=== PATIENT | female | born 1960 | race Caucasian/White ===

== ENCOUNTER → 2019-02-25 | Outpatient (CLI) | payer OTHER ==
--- NOTE | 2019-02-27 09:42 | MM ---
Reason for exam: screening (asymptomatic). History: Patient is postmenopausal. Took hormonal contraceptives for 2 years. Physical Findings: A clinical breast exam by your physician is recommended on an annual basis and results should be correlated with mammographic findings. MG Screening Mammo w CAD Bilateral CC and MLO view(s) were taken. There are scattered fibroglandular densities. No significant changes when compared with prior studies. ASSESSMENT: Benign, BI-RAD 2 RECOMMENDATION: Routine screening mammogram of both breasts in 1 year.
== END | disposition home or self-care (01) ==
LOC: RADMAMWWP 08:18
PROVIDERS: ATTEND Family Medicine
DX: Z12.31 Encounter for screening mammogram for malignant neoplasm of breast (principal)
CPT/HCPCS: 77067

== ENCOUNTER → 2019-03-02 | Outpatient (CLI) | payer OTHER ==
--- NOTE | 2019-03-02 09:33 | XR ---
EXAMINATION TYPE: XR hand complete RT DATE OF EXAM: 03/02/2019 CLINICAL HISTORY: Right hand pain after twisting injury TECHNIQUE: Frontal, lateral and oblique images of the right hand are obtained. COMPARISON: None. FINDINGS: There is no acute fracture/dislocation evident in the right hand. The joint spaces in the right hand appear aligned with mild hypertrophic osseous change of the first carpal metacarpal joint. Minimal degenerative changes are also seen of the distal interphalangeal joints. Cortical cyst of th e distal third middle phalanx. Incidental note of slight negative ulnar variance. The overlying soft tissue appears unremarkable. Osseous proliferation IMPRESSION: There is no acute fracture or dislocation in the right hand.
== END | disposition home or self-care (01) ==
LOC: RADXRMAIN 08:48
PROVIDERS: ATTEND Physician Assistant
DX: M79.641 Pain in right hand (principal)

== ENCOUNTER → 2019-06-27 | Day surgery (SDC) | payer OTHER ==
[2019-06-23 11:06] VITALS: BMI 37.8
[~2019-06-27] MED LIST: BUPIVACAINE (PF) 0.5% 30 ML VIAL SQ ONE; DEXAMETHASONE SOD PHOSPHATE 10 MG/ML 1 ML VIAL IV ONE; HYDROcodone/APAP 5-325MG 1 EACH TAB PO ONE; HYDROmorphone 0.5 MG/0.5 ML SYRINGE IVP PRN; LACTATED RINGERS 1,000 ML IV SCH; LIDOCAINE 1% 20 ML VIAL (10MG/ML) FOR IV START INTRADERMA PRN; LIDOCAINE 1% INJ 10MG/ML (20 ML MDV) ONE; LIDOCAINE 2% INJ 20 MG/ML SQ ONE; MIDAZOLAM 2 MG/2 ML VIAL ONE; ONDANSETRON 4 MG/2 ML VIAL IVP ONE; PROPOFOL 10 MG/ML 20 ML VIAL IV ONE; Pre Op ABX Message 1 EACH MISC MISCELLANE ONE; SCOPOLAMINE 1.5MG/72HR PATCH TRANSDERM ONE; fentaNYL (PF) 50 MCG/ML 2 ML AMP ONE
[2019-06-27 11:59] VITALS: TEMP 97.2
[2019-06-27 12:02] LABS: Glucose,Whole Blood 122 mg/dL (75-99)
[2019-06-27 13:11] VITALS: RESP 17
[2019-06-27 13:43] VITALS: BP 139/72; PULSE 62
--- NOTE | 2019-06-28 05:32 | OP ---
OPERATIVE REPORT DATE OF SERVICE: 06/27/2019 PREOPERATIVE DIAGNOSES: 1. Right carpal tunnel syndrome. 2. De Quervain tendinitis, right wrist. FINAL DIAGNOSES: 1. Right carpal tunnel syndrome. 2. De Quervain tendinitis, right wrist. PROCEDURE: 1. Right carpal tunnel release. 2. De Quervain release, right wrist. DESCRIPTION OF PROCEDURE: Right Carpal Tunnel Release: The patient was taken to the operative suite where a sedation was administered by the department of anesthesia. I then performed a local injection along the line of the incision with a combination of Marcaine and Xylocaine both without epinephrine. The hand was then prepped and draped in the usual manner. The arm was elevated, exsanguinated and the cuff was inflated to 250 mm of mercury. A longitudinal incision was made along the ring finger ray distal to the wrist crease. Dissection was taken through the skin and subcutaneous tissue, initially sharp through the skin and then blunt through the subcutaneous tissue to ensure protection of any potential terminal transverse branches of the palmar cutaneous nerve. The palmar fascia was then incised under direct vision longitudinally exposing the transverse carpal ligament. The transverse carpal ligament also was incised under direct vision. The dissection was then continued proximally beneath the skin under direct vision to release the distal forearm fascia. The median nerve was then reflected free of tenosynovium to ensure no adhesions. The tourniquet was then released. The wound was then irrigated and the skin was closed with a running 5-0 nylon suture. A soft bulky dressing was applied including a volar plaster splint holding the wrist in a neutral slightly extended position. De Quervain Release: A regional [place] block anesthetic was performed by the department of anesthesia with good result. The arm was then prepped and draped in the usual manner. A transverse incision was made over the radial styloid. Dissection was taken through the skin only in a sharp manner and then blunt dissection was used to go through the subcutaneous tissue to the extensor retinaculum. In this manner care was taken to avoid any injury to the dorsal branch of the radial nerve. The extensor retinaculum was identified and visualized with both its proximal and distal aspects. Beginning distally the extensor tendons were identified and followed into the tunnel in a retrograde manner. The tunnel was opened along its dorsal margins. In this way a volar lip was preserved to prevent volar subluxation of the tendons over the radial styloid postoperatively. The multiple cysts of the abductor and the extensor pollicis brevis were released and care was taken to make sure that all tendons were free at the completion. A limited tenosynovectomy was performed. The tendons were retracted from the wound to insure no adhesions. The wound was irrigated. The tendons were left within the bed of the first dorsal extensor compartment and the volar flap which had been preserved as discussed above was laid gently over the top of the tendons. The wound was then closed with 6-0 Nylon suture. Marcaine was injected followed by application of a soft bulky dressing and volar plaster splint including the thumb with the wrist in a slight extension. The patient was then taken to the recovery room in satisfactory condition. DIANA / EUSEBIO: [id number] /
== END ==
LOC: OR 11:13
PROVIDERS: ATTEND Orthopaedic Surgery Hand Surgery
DX: G56.01 Carpal tunnel syndrome, right upper limb (principal); M65.4 Radial styloid tenosynovitis [de Quervain]; I10 Essential (primary) hypertension; E11.9 Type 2 diabetes mellitus without complications; K21.9 Gastro-esophageal reflux disease without esophagitis; F32.9 Major depressive disorder, single episode, unspecified; R26.81 Unsteadiness on feet; R45.0 Nervousness; R00.2 Palpitations; E66.01 Morbid (severe) obesity due to excess calories; Z79.899 Other long term (current) drug therapy; Z79.84 Long term (current) use of oral hypoglycemic drugs; Z79.82 Long term (current) use of aspirin; Z97.3 Presence of spectacles and contact lenses; Z68.37 Body mass index [BMI] 37.0-37.9, adult; Z90.710 Acquired absence of both cervix and uterus; Z98.890 Other specified postprocedural states; Z82.49 Family history of ischemic heart disease and other diseases of the circulatory system; Z86.79 Personal history of other diseases of the circulatory system
CPT/HCPCS: 64721; 25000; J2001 ×2; J2250; J1100; J2405; J3010; J2704

== ENCOUNTER 2020-01-30 19:06 | Emergency (ER) | payer MEDICARE, OTHER ==
[2020-01-30 19:22] VITALS: TEMP 98
--- NOTE | 2020-01-30 19:24 | ED ---
Lower Extremity Injury HPI - General Chief Complaint: Extremity Injury, Lower Stated Complaint: lt knee pain Time Seen by Provider: 01/30/20 19:23 Source: patient Mode of arrival: ambulatory - History of Present Illness Initial Comments: Patient is 59-year-old female presenting to the emergency department with a chief complaint of left knee pain. Patient states earlier today she was attempting to get into her truck. Patient states she got her left leg off of the ground and felt sudden pop and an onset of pain along the lateral aspect the left knee. Patient states the knee "could've possibly twisted". States she is not completely aware. States the pain is exacerbated with knee flexion above 90. Patient states she is able to ambulate with some discomfort. Patient denies any sensation of her knee giving out. Denies any swelling, ecchymosis. States she had previous surgery on the left knee which she was 10 years old for a patella fracture. States the pain is minimal at rest but alleviated with knee flexion. - Related Data Home Medications Medication Instructions Recorded Confirmed Aspirin [Adult Low Dose Aspirin EC] 81 mg PO DAILY 06/23/19 06/23/19 Bisoprolol [Zebeta] 5 mg PO DAILY 06/23/19 06/23/19 Calcium With Vitamin D 1 tab PO DAILY 06/23/19 Cyanocobalamin [Vitamin B-12] 500 mcg PO DAILY 06/23/19 06/23/19 DULoxetine HCL [Cymbalta] 60 mg PO HS 06/23/19 06/23/19 Lisinopril-Hctz 20-12.5 mg 1 tab PO BID 06/23/19 06/23/19 [Zestoretic 20-12.5] Loratadine 10 mg PO DAILY 06/23/19 06/23/19 Magnesium 500 mg PO DAILY 06/23/19 06/23/19 Naproxen Sodium [Aleve] 220 mg PO BID PRN 06/23/19 06/23/19 Oxybutynin Chloride [Ditropan] 5 mg PO BID 06/23/19 06/23/19 Pantoprazole Sodium [Protonix] 20 mg PO DAILY 06/23/19 06/23/19 Pregabalin [Lyrica] 100 mg PO TID 06/23/19 06/23/19 cloNIDine HCL [Catapres] 0.1 mg PO BID 06/23/19 06/23/19 metFORMIN HCL [Glucophage] 1,000 mg PO AC-LUNCH 06/23/19 06/23/19 tiZANidine HCL [Zanaflex] 4 mg PO TID PRN 06/23/19 06/23/19 Allergies Allergy/AdvReac Type Severity Reaction Status Date / Time No Known Allergies Allergy Verified 01/30/20 19:22 Review of Systems ROS Statement: Those systems with pertinent positive or pertinent negative responses have been documented in the HPI. ROS Other: All systems not noted in ROS Statement are negative. Past Medical History Past Medical History: Atrial Fibrillation, Diabetes Mellitus, GERD/Reflux, Hypertension Additional Past Medical History / Comment(s): DDD WITH HERNIATED DISC AND BACK PAIN, URINE LEAKAGE. History of Any Multi-Drug Resistant Organisms: None Reported Past Surgical History: Hysterectomy, Orthopedic Surgery Additional Past Surgical History / Comment(s): BACK INJECTIONS, LEFT KNEE ARTHROSCOPY, LEFT FOOT MASS REMOVED Past Anesthesia/Blood Transfusion Reactions: No Reported Reaction Additional Past Anesthesia/Blood Transfusion Reaction / Comment(s): SON- AGITATED, "CUSSES NURSES" Past Psychological History: Depression Smoking Status: Never smoker Past Alcohol Use History: Occasional Past Drug Use History: None Reported - Past Family History Mother Family Medical History: Cancer General Exam Limitations: no limitations General appearance: alert, in no apparent distress, obese Head exam: Present: atraumatic, normocephalic, normal inspection Eye exam: Present: normal appearance, PERRL, EOMI Pupils: Present: normal accommodation ENT exam: Present: normal exam, normal oropharynx, mucous membranes moist, TM's normal bilaterally, normal external ear exam Neck exam: Present: normal inspection, full ROM. Absent: tenderness Respiratory exam: Present: normal lung sounds bilaterally. Absent: respiratory distress, wheezes, rales Cardiovascular Exam: Present: regular rate, normal rhythm, normal heart sounds Extremities exam: Present: normal inspection (No signs of trauma or any bony deformities noted on the left knee.), tenderness (Tenderness along the LCL of the left knee.), normal capillary refill, other (+2 dorsalis pedis and posterior tibialis bilaterally. Negative Anterior drawer. Negative America). Absent: full ROM (Limited range of motion in the left knee above 90.), pedal edema, joint swelling, calf tenderness Back exam: Present: normal inspection, full ROM. Absent: tenderness Neurological exam: Present: alert, oriented X3 Psychiatric exam: Present: normal affect, normal mood Skin exam: Present: warm, dry, intact, normal color Course Vital Signs 01/30/20 01/30/20 19:17 20:12 Temperature 98 F Pulse Rate 60 55 L Respiratory 18 16 Rate Blood Pressure 178/100 174/98 O2 Sat by Pulse 99 99 Oximetry Medical Decision Making - Medical Decision Making Patient is a 59-year-old female presenting to emergency Department with a chief complaint of left knee pain. On physical examination, patient is neurovascularly intact in the left lower stomach. Negative anterior drawer and America. X-ray shows some spurring but otherwise unremarkable. Patient was given Tylenol for pain. Patient was advised to follow with crime specialist. Strict return parameters were thoroughly discussed the patient was understanding and agreeable. Case discussed with physician. Disposition Clinical Impression: Left knee pain, Left knee sprain Disposition: HOME SELF-CARE Condition: Stable Instructions (If sedation given, give patient instructions): Knee Sprain (ED) Additional Instructions: Follow-up with crime specialist. Take Tylenol for pain. Apply ice compress and keep the leg elevated. Return to emergency department if symptoms worsen. Is patient prescribed a controlled substance at d/c from ED?: No Referrals: Sumit Smith DO [Primary Care Provider] - 1-2 days Khadar Ford MD [STAFF PHYSICIAN] - 1-2 days Time of Disposition: 19:54
[2020-01-30] MEDS ORDERED: ACETAMINOPHEN TAB 500 MG TAB PO STA (19:33)
--- NOTE | 2020-01-30 19:50 | XR ---
EXAMINATION TYPE: XR knee complete LT DATE OF EXAM: 01/30/2020 COMPARISON: NONE HISTORY: Knee pain TECHNIQUE: 3 views FINDINGS: I see no fracture nor dislocation. There is mild spurring on the superior patella. The join t spaces are fairly normal. There is no sign of joint effusion. IMPRESSION: Minimal spurring. No fracture seen.
[2020-01-30 20:13] VITALS: BP 174/98; PULSE 55; RESP 16
== END 2020-01-30 20:18 | disposition home or self-care (01) ==
LOC: EC 19:06
DX: S83.92XA Sprain of unspecified site of left knee, initial encounter (principal); I10 Essential (primary) hypertension; E11.9 Type 2 diabetes mellitus without complications; M54.9 Dorsalgia, unspecified; F32.9 Major depressive disorder, single episode, unspecified; K21.9 Gastro-esophageal reflux disease without esophagitis; I48.91 Unspecified atrial fibrillation; Z79.82 Long term (current) use of aspirin; Z79.899 Other long term (current) drug therapy; Z79.84 Long term (current) use of oral hypoglycemic drugs; Z98.890 Other specified postprocedural states; X50.1XXA Overexertion from prolonged static or awkward postures, initial encounter
CPT/HCPCS: 99283

== ENCOUNTER → 2020-03-01 | Outpatient (CLI) | payer MEDICARE, OTHER ==
--- NOTE | 2020-03-01 14:16 | MR ---
EXAMINATION TYPE: MR knee LT wo con DATE OF EXAM: 03/01/2020 COMPARISON: None HISTORY: Left knee pain CONTRAST: None Technique: Multiplanar, multiecho imaging on a 3.0 Emely magnet is performed through the knee. FINDINGS: There is a large joint effusion. Linear signals within the joint fluid. A plica may be pres ent. There is increased horizontal signal within the posterior horn medial meniscus compatible with a type I internal tear. No communication with an articular surface is evident. The anterior horn medial men iscus appears normal. Anterior and posterior cruciate ligaments are intact. Anterior and posterior ho rns lateral meniscus are intact. Medial and lateral collateral ligaments are intact. There is some mild joint space narrowing of the medial compartment with thinning of the articular car tilage. Milder lateral compartment articular cartilage thinning is present. Patellofemoral articular cartilage appears intact. Osseous signal is normal. No popliteal cysts evident. There is some mild rush bcutaneous edema present anteriorly. IMPRESSIONS: 1. Large joint effusion. Consider the possibility of a plica present within the joint fluid. 2. Osteoarthritic degenerative type changes. 3. Type I tear posterior horn medial meniscus 2.
== END | disposition home or self-care (01) ==
LOC: RADMRIMAIN 11:08
PROVIDERS: ATTEND Orthopaedic Surgery
DX: S83.242A Other tear of medial meniscus, current injury, left knee, initial encounter (principal); M17.12 Unilateral primary osteoarthritis, left knee

== ENCOUNTER → 2020-03-18 | Outpatient (CLI) | payer MEDICARE, OTHER ==
[2020-03-18 14:33] LABS: Basophils # (A) 0.1 k/uL (0-0.2); Basophils % (A) 1 %; Eosinophils # (A) 0.3 k/uL (0-0.7); Eosinophils % (A) 4 %; HCT 38.1 % (34.0-46.0); HGB 11.9 gm/dL (11.4-16.0); Hypochromasia Slight; Lymphocytes # (A) 2.4 k/uL (1.0-4.8); Lymphocytes % (A) 26 %; MCHC 31.3 g/dL (31.0-37.0); MCV 86.2 fL (80.0-100.0); Mean Platelet Volume 8.5; Monocytes # (A) 0.5 k/uL (0-1.0); Monocytes % (A) 6 %; Neutrophils # (A) 5.5 k/uL (1.3-7.7); Neutrophils % (A) 62 %; Platelet Count 171 k/uL (150-450); RBC 4.41 m/uL (3.80-5.40); RDW 15.1 % (11.5-15.5); WBC 8.9 k/uL (3.8-10.6)
[2020-03-18 14:38] LABS: Potassium 4.8 mmol/L (3.5-5.1)
== END | disposition home or self-care (01) ==
LOC: LABPAT 12:24
PROVIDERS: ATTEND Orthopaedic Surgery
DX: M23.92 Unspecified internal derangement of left knee (principal)
CPT/HCPCS: 36415; 80051; 85025; 93005

== ENCOUNTER 2020-04-01 12:46 | Day surgery (SDC) | payer MEDICARE, OTHER ==
[2020-03-29 12:52] VITALS: BMI 36.8
--- NOTE | 2020-03-31 16:10 | HP ---
HISTORY AND PHYSICAL REASON FOR ADMISSION: Surgery scheduled for 04/01/2020 Monica Woodward is a 59-year-old patient seen with progressive left knee pain. We discussed options for treatment. She elected to proceed with left knee arthroscopy. Consent regarding the procedure was obtained. PAST MEDICAL HISTORY: [id number] diabetes, hypertension. PAST SURGICAL HISTORY: section, hysterectomy, left knee arthroscopy. MEDICATIONS: Bisoprolol, lisinopril, metformin, Naprosyn. ALLERGIES: None. SOCIAL HISTORY: She denies tobacco use. PHYSICAL EXAMINATION: Evaluation of the left knee: Range of motion 0-110 degrees. Mild effusion. Tenderness medial joint line. Tenderness lateral joint line. Positive medial America's. Positive lateral America's. Ligaments are stable. Hip rotation without pain. Distal neurovascular exam is intact. RADIOGRAPHS: Left knee radiographs revealed mild to moderate osteoarthritic changes. Left knee MRI revealed medial meniscal tear and intra-articular effusion. IMPRESSION: 1. Internal derangement, left knee with medial meniscal tear. 2. Left knee osteoarthritis. 3. Hypertension. 4. Xnt-ahavwsb-oiynairmz diabetes. PLAN: Left knee arthroscopy with partial meniscectomy, partial synovectomy and debridement. Surgeries scheduled for 04/01/2020. MMODL / IJN: [id number] /
[~2020-04-01 12:46] MED LIST changes: -BUPIVACAINE (PF) 0.5% 30 ML VIAL SQ ONE; -DEXAMETHASONE SOD PHOSPHATE 10 MG/ML 1 ML VIAL IV ONE; +DEXAMETHASONE SOD PHOSPHATE 4 MG/ML 1 ML VIAL IV ONE; -HYDROcodone/APAP 5-325MG 1 EACH TAB PO ONE; -HYDROmorphone 0.5 MG/0.5 ML SYRINGE IVP PRN; +LIDOCAINE 1% (10MG/ML) FOR IV START INTRADERMA PRN; -LIDOCAINE 1% 20 ML VIAL (10MG/ML) FOR IV START INTRADERMA PRN; -LIDOCAINE 1% INJ 10MG/ML (20 ML MDV) ONE; -LIDOCAINE 2% INJ 20 MG/ML SQ ONE; +MIDAZOLAM 2 MG/2 ML VIAL IV PRN; -MIDAZOLAM 2 MG/2 ML VIAL ONE; -PROPOFOL 10 MG/ML 20 ML VIAL IV ONE; -Pre Op ABX Message 1 EACH MISC MISCELLANE ONE; -SCOPOLAMINE 1.5MG/72HR PATCH TRANSDERM ONE; -fentaNYL (PF) 50 MCG/ML 2 ML AMP ONE
[2020-04-01 13:40] LABS: Glucose,Whole Blood 98 mg/dL (75-99)
[2020-04-01 13:45] VITALS: TEMP 96.8
[2020-04-01] MEDS ORDERED: PROPOFOL 10 MG/ML 20 ML VIAL IV ONE (14:43)
[2020-04-01] MEDS ORDERED: LIDOCAINE 1% INJ 10MG/ML (20 ML MDV) ONE (14:43)
[2020-04-01] MEDS ORDERED: MIDAZOLAM 2 MG/2 ML VIAL ONE (14:43)
[2020-04-01] MEDS ORDERED: fentaNYL (PF) 50 MCG/ML 2 ML AMP ONE (14:43)
[2020-04-01] MEDS ORDERED: METOPROLOL TARTRATE 5 MG/5 ML VIAL IVP ONE (14:43)
[2020-04-01] MEDS ORDERED: SUCCINYLCHOLINE CHLORIDE 100 MG/5 ML SYR IV ONE (14:43)
[2020-04-01] MEDS ORDERED: KETOROLAC 15 MG/ML 1 ML VIAL ONE (14:43)
[2020-04-01] MEDS ORDERED: BUPIVACAINE (PF) 0.25% 30 ML VIAL INTRAARTIC ONE (15:09)
--- NOTE | 2020-04-01 15:35 | P.OP ---
Date of Procedure: 04/01/20 Preoperative Diagnosis: Internal derangement left knee Postoperative Diagnosis: 1. Tear medial meniscus left knee 2. Grade 3 chondromalacia medial femoral condyle left knee 3. Reactive synovitis medial, lateral and suprapatellar compartments left knee Procedure(s) Performed: 1. Arthroscopic partial medial meniscectomy left knee 2. Arthroscopic chondroplasty medial femoral condyle left knee 3. Arthroscopic partial synovectomy medial, lateral and suprapatellar compartments left knee Anesthesia: MATTHIASA, local Surgeon: Sotero Buitrago Estimated Blood Loss (ml): 10 Pathology: none sent Condition: stable Disposition: PACU Indications for Procedure: 59-year-old patient seen with progressive left knee pain. After treatment options were discussed, she elected to proceed with arthroscopy. Operative Findings: See description of procedure Description of Procedure: Patient was taken to the operative suite. Patient underwent a general anesthetic by the department of anesthesia. Patient was given preoperative antibiotics. The left lower extremity was placed in a well-padded arthroscopic leg frank. The left leg was prepped and draped in the normal sterile orthopedic fashion. A lateral parapatellar and suprapatellar incision was made. Trochars were inserted. Arthroscopy was initiated. Suprapatellar pouch revealed diffuse thick reactive synovitis. The patellofemoral joint appeared to articulate congruently. There was grade 1/2 chondromalacia with no osteochondral tears present. The scope was guided into the medial gutter. No loose bodies or plica were identified. The scope was then guided into the medial compartment. A medial parapatellar incision was made. Trocar inserted followed by probe. There was a radial tear posterior horn medial meniscus. There were grade 3 chondromalacia changes of the medial femoral condyle with some diffuse osteochondral tears present. There was thick reactive synovitis anteriorly. I performed a partial medial meniscectomy. I performed a chondroplasty of the medial femoral condyle. I performed a partial synovectomy decompressing reactive synovitis. The residual meniscus was stable. The residual osteochondral surface was stable. There was good decompression of the synovitis. Scope and probe were then guided into the intercondylar notch. Cruciates were identified, probed and found to be stable. The scope and probe were then guided into lateral compartment. Lateral meniscus was probed and found to be stable. There was mild chondromalacia lateral compartment. There was thick reactive some-itis anteriorly. I introduced a motorized shaver and performed a partial synovectomy decompressing reactive synovitis. The shaver was removed. There was good decompression of the synovitis. The scope was in guided back into the suprapatellar compartment. I introduced a motorized shaver into the super patellar compartment. I debrided some piecemeal fragments of meniscus I encountered. I performed a partial synovectomy. The shaver was re moved. There was good decompression of the synovitis. I took one more look around the entire knee, no residual debris. Instruments were now removed from the joint. The joint was infiltrated with .25% Marcaine. Steri-Strips were applied to the portal sites. Sterile dressings were applied. The patient was placed into a DANIELA hose. No tourniquet was utilized. The patient was awakened, transferred to a bed and taken to recovery stable satisfactory condition.
[2020-04-01 15:51] LABS: Glucose,Whole Blood 108 mg/dL (75-99)
[2020-04-01] MEDS: HYDROmorphone 0.5 MG/0.5 ML SYRINGE IVP PRN ×3 (16:01→16:21)
[2020-04-01 16:41] VITALS: RESP 16
[2020-04-01] MEDS ORDERED: HYDROcodone/APAP 5-325MG 1 EACH TAB ONE (16:43)
[2020-04-01 16:55] VITALS: BP 122/88; PULSE 50
== END 2020-04-01 17:20 | disposition home or self-care (01) ==
LOC: OR 12:46
PROVIDERS: ATTEND Orthopaedic Surgery
DX: M23.222 Derangement of posterior horn of medial meniscus due to old tear or injury, left knee (principal); M17.12 Unilateral primary osteoarthritis, left knee; M94.262 Chondromalacia, left knee; M65.862 Other synovitis and tenosynovitis, left lower leg; I10 Essential (primary) hypertension; I48.91 Unspecified atrial fibrillation; J44.9 Chronic obstructive pulmonary disease, unspecified; E11.9 Type 2 diabetes mellitus without complications; K21.9 Gastro-esophageal reflux disease without esophagitis; Z79.82 Long term (current) use of aspirin; Z79.84 Long term (current) use of oral hypoglycemic drugs; Z79.899 Other long term (current) drug therapy; Z90.710 Acquired absence of both cervix and uterus; Z98.891 History of uterine scar from previous surgery; Z98.890 Other specified postprocedural states
CPT/HCPCS: 29881; J2250; J1100; J0690; J2405; J2001; J3010; J1885; J0330; J2704; J1170

== ENCOUNTER → 2020-05-06 | Outpatient (CLI) | payer MEDICARE, OTHER ==
--- NOTE | 2020-05-06 14:40 | US ---
EXAMINATION TYPE: US kidneys/renal and bladder DATE OF EXAM: 05/06/2020 COMPARISON: NONE CLINICAL HISTORY: N18.31 CKD STAGE III. CKD stage 3 EXAM MEASUREMENTS: Right Kidney: 10.4 x 4.5 x 4.0 cm Left Kidney: 10.7 x 4.2 x 4.4 cm Right Kidney: no hydronephrosis or masses seen Left Kidney: no hydronephrosis or masses seen Bladder: wnl Bilateral Jets seen: yes There is no evidence for hydronephrosis at this point in time. No nephrolithiasis is seen. No lien s are identified. The urinary bladder is anechoic. Bilateral ureteral jets are seen. IMPRESSION: No distinct abnormality seen.
[2020-05-06 14:51] LABS: Appearance,Urine Clear (Clear); Bilirubin,Urine Negative (Negative); Blood,Urine Negative (Negative); Color,Urine Light Yellow; Glucose,Urine (UA) Negative (Negative); Ketones,Urine Negative (Negative); Leukocyte Esterase,Urine Negative (Negative); Nitrite,Urine Negative (Negative); Protein,Urine Negative (Negative); Specific Gravity,Urine 1.003 (1.001-1.035); Urobilinogen,Urine <2.0 mg/dL (<2.0)
[2020-05-06 14:53] LABS: Basophils # (A) 0.1 k/uL (0-0.2); Basophils % (A) 1 %; Eosinophils # (A) 0.2 k/uL (0-0.7); Eosinophils % (A) 2 %; HCT 40.3 % (34.0-46.0); Lymphocytes # (A) 1.9 k/uL (1.0-4.8); Lymphocytes % (A) 20 %; MCH 27.6 pg (25.0-35.0); MCHC 32.4 g/dL (31.0-37.0); MCV 85.2 fL (80.0-100.0); Mean Platelet Volume 9.2; Monocytes # (A) 0.5 k/uL (0-1.0); Monocytes % (A) 6 %; Neutrophils # (A) 6.6 k/uL (1.3-7.7); Neutrophils % (A) 71 %; Platelet Count 208 k/uL (150-450); RBC 4.73 m/uL (3.80-5.40); RDW 14.7 % (11.5-15.5); WBC 9.4 k/uL (3.8-10.6)
[2020-05-06 15:00] LABS: Calcium 9.6 mg/dL (8.4-10.2); Magnesium 1.6 mg/dL (1.6-2.3); Phosphorus 3.5 mg/dL (2.5-4.5); Potassium 4.2 mmol/L (3.5-5.1); Uric Acid 6.7 mg/dL (3.7-7.4)
[2020-05-06 15:03] LABS: Creatinine,Urine Random 36.9 mg/dL; Protein/Creatinine Ratio,Urine 0.352
[2020-05-07 00:25] LABS: % Iron Saturation 8.38 (12.00-45.00)
== END | disposition home or self-care (01) ==
LOC: RADUSWWP 13:07
PROVIDERS: ATTEND Internal Medicine Nephrology
DX: N18.31 Chronic kidney disease, stage 3a (principal); N17.9 Acute kidney failure, unspecified; E55.9 Vitamin D deficiency, unspecified; N25.81 Secondary hyperparathyroidism of renal origin; M10.9 Gout, unspecified; N39.0 Urinary tract infection, site not specified; D64.9 Anemia, unspecified; R80.9 Proteinuria, unspecified
CPT/HCPCS: 76770; 80048; 81003; 82040; 82306; 82570; 82728; 83540; 83550; 83735; 83970; 84100; 84156; 84550; 85025

== ENCOUNTER 2020-09-25 16:48 | Emergency (ER) | payer MEDICARE, OTHER ==
[2020-09-25 16:52] VITALS: BP 140/82; PULSE 72; RESP 18; TEMP 99.3
[2020-09-25] MEDS ORDERED: KETOROLAC 15 MG/ML 1 ML VIAL IM STA (17:00)
--- NOTE | 2020-09-25 17:04 | ED ---
Lower Extremity Injury HPI - General Chief Complaint: Extremity Injury, Lower Stated Complaint: fall/knee injury Time Seen by Provider: 09/25/20 16:53 Source: patient, RN notes reviewed Mode of arrival: ambulatory Limitations: no limitations - History of Present Illness Initial Comments: 60-year-old female presenting emergency room complaining of right knee pain after falling on it. She notes that she was walking when she fell and landed dry in her knee. She notes medial sided pain. She did note that she can walk on it with some mild discomfort. She denied any previous knee injury or concerns in the past for the right knee. She was in no apparent distress or pain while sitting up in bed during exam and interview. She denied any weakness numbness tingling decreased range of motion or strength. - Related Data Home Medications Medication Instructions Recorded Confirmed Aspirin [Adult Low Dose Aspirin EC] 81 mg PO DAILY 06/23/19 04/01/20 Bisoprolol [Zebeta] 5 mg PO DAILY 06/23/19 04/01/20 Calcium With Vitamin D 1 tab PO BID 06/23/19 04/01/20 Cyanocobalamin [Vitamin B-12] 1,000 mcg PO DAILY 06/23/19 04/01/20 DULoxetine HCL [Cymbalta] 60 mg PO HS 06/23/19 04/01/20 Lisinopril-Hctz 20-12.5 mg 1 tab PO BID 06/23/19 04/01/20 [Zestoretic 20-12.5] Loratadine 10 mg PO DAILY 06/23/19 04/01/20 Magnesium 500 mg PO DAILY 06/23/19 04/01/20 Naproxen Sodium [Aleve] 220 mg PO BID PRN 06/23/19 04/01/20 Oxybutynin Chloride [Ditropan] 5 mg PO BID 06/23/19 04/01/20 Pantoprazole Sodium [Protonix] 20 mg PO DAILY 06/23/19 04/01/20 Pregabalin [Lyrica] 100 mg PO TID 06/23/19 04/01/20 cloNIDine HCL [Catapres] 0.1 mg PO BID 06/23/19 04/01/20 metFORMIN HCL [Glucophage] 500 mg PO BID 06/23/19 04/01/20 tiZANidine HCL [Zanaflex] 4 mg PO TID PRN 06/23/19 04/01/20 Albuterol Nebulized [Ventolin 2.5 mg INHALATION QID PRN 03/29/20 04/01/20 Nebulized] traMADol HCl [Ultram] 50 mg PO DIRECTED PRN 03/29/20 04/01/20 Previous Rx's Medication Instructions Recorded Hydrocodone/Acetaminophen [Forest 1 each PO Q6HR PRN #21 tab 04/01/20 5-325] Allergies Allergy/AdvReac Type Severity Reaction Status Date / Time No Known Allergies Allergy Verified 09/25/20 16:52 Review of Systems ROS Statement: Those systems with pertinent positive or pertinent negative responses have been documented in the HPI. ROS Other: All systems not noted in ROS Statement are negative. Past Medical History Past Medical History: Atrial Fibrillation, Diabetes Mellitus, GERD/Reflux, Hypertension, Musculoskeletal Disorder, Pneumonia Additional Past Medical History / Comment(s): Occ palpitations. DDD w/ herniated disc, back pain. Abn kidney function testing, to see [place]. Bladder leakage. Had a pop in Lt knee w/ pain since, edema in knee. lt knee surgery History of Any Multi-Drug Resistant Organisms: None Reported Past Surgical History: Hysterectomy, Orthopedic Surgery Additional Past Surgical History / Comment(s): BACK INJECTIONS, LEFT KNEE ARTHROSCOPY, LEFT FOOT MASS REMOVED. CTR bilat. Past Anesthesia/Blood Transfusion Reactions: No Reported Reaction, Family History of Problems w/ Anesthesia Additional Past Anesthesia/Blood Transfusion Reaction / Comment(s): SON - AGITATED, "CUSSES out NURSES" Past Psychological History: Depression Smoking Status: Never smoker Past Alcohol Use History: None Reported Past Drug Use History: None Reported - Past Family History Mother Family Medical History: Cancer, Deep Vein Thrombosis (DVT) Additional Family Medical History / Comment(s): uterine cancer General Exam Limitations: no limitations General appearance: alert, in no apparent distress Head exam: Present: atraumatic, normocephalic, normal inspection Eye exam: Present: normal appearance, PERRL, EOMI. Absent: scleral icterus, conjunctival injection, periorbital swelling Neck exam: Present: normal inspection Respiratory exam: Present: normal lung sounds bilaterally. Absent: respiratory distress, wheezes, rales, rhonchi, stridor Cardiovascular Exam: Present: regular rate, normal rhythm, normal heart sounds. Absent: systolic murmur, diastolic murmur, rubs, gallop, clicks Extremities exam: Present: normal inspection (Positive America's test medial side of the right knee), full ROM, normal capillary refill. Absent: tenderness, pedal edema, joint swelling, calf tenderness Neurological exam: Present: alert, oriented X3, CN II-XII intact Psychiatric exam: Present: normal affect, normal mood Skin exam: Present: warm, dry, intact, normal color. Absent: rash Course Vital Signs 09/25/20 16:49 Temperature 99.3 F Pulse Rate 72 Respiratory 18 Rate Blood Pressure 140/82 O2 Sat by Pulse 96 Oximetry Medical Decision Making - Medical Decision Making 89-year-old female complaining of right knee pain after falling earlier today. X-ray of the right knee, 15 mg of Toradol ordered. Case discussed with Dr. Orellana, patient can discharge home. - Radiology Data Radiology results: report reviewed, image reviewed Right knee x-ray: There is soft tissue swelling. No fracture. Disposition Clinical Impression: Right knee pain Disposition: HOME SELF-CARE Condition: Stable Instructions (If sedation given, give patient instructions): Knee Pain (ED) Additional Instructions: Please return to the Emergency Department if symptoms worsen or any other concerns. Follow-up with primary care in 3-5 days. Follow-up with orthopedics if pain continues. Take at home pain medication such as Tylenol Motrin for pain control. Use as tolerated. Is patient prescribed a controlled substance at d/c from ED?: No Referrals: Sumit Smith DO [Primary Care Provider] - 1-2 days Lee Steele DO [Doctor of Osteopathic Medicine] - 1-2 days Time of Disposition: 17:57
--- NOTE | 2020-09-25 17:55 | XR ---
EXAMINATION TYPE: XR knee 4V RT DATE OF EXAM: 09/25/2020 COMPARISON: NONE HISTORY: Knee pain TECHNIQUE: 4 views FINDINGS: I see no fracture nor dislocation. Joint spaces are normal. There is no sign of joint effus ion. There is subcutaneous edema around the knee. IMPRESSION: There is some soft tissue swelling. No fracture.
== END 2020-09-25 18:16 | disposition home or self-care (01) ==
LOC: EC 16:48
DX: M25.561 Pain in right knee (principal); M79.89 Other specified soft tissue disorders; E11.9 Type 2 diabetes mellitus without complications; I10 Essential (primary) hypertension; K21.9 Gastro-esophageal reflux disease without esophagitis; I48.91 Unspecified atrial fibrillation; F32.9 Major depressive disorder, single episode, unspecified; Z79.84 Long term (current) use of oral hypoglycemic drugs; Z79.82 Long term (current) use of aspirin; W18.30XA Fall on same level, unspecified, initial encounter; Y93.01 Activity, walking, marching and hiking
CPT/HCPCS: 73564; 99283; 96372; J1885

== ENCOUNTER → 2020-10-21 | Outpatient (CLI) | payer MEDICARE, OTHER ==
--- NOTE | 2020-10-21 14:20 | MR ---
EXAMINATION TYPE: MR knee RT wo con DATE OF EXAM: 10/21/2020 COMPARISON: Right knee x-ray September 25, 2020 HISTORY: R knee pain with locking and swelling for one month after twisting injury TECHNIQUE: Multiplanar, multisequence imaging of the right knee is performed without IV contrast. FINDINGS: MEDIAL MENISCUS: Medial extrusion medial meniscus on coronal images. Posterior horn is oblique signal extending to inferior articular surface sagittal image 7. LATERAL MENISCUS: Anterior and posterior horns are intact without tear. CRUCIATE LIGAMENTS: The anterior and posterior cruciate ligaments are intact and unremarkable. COLLATERAL LIGAMENTS: The medial collateral ligament and lateral collateral ligament complex are inta ct and unremarkable. EXTENSOR MECHANISM: Visualized quadriceps and patellar tendons are intact. EFFUSION: Large size suprapatellar joint effusion with low dense internal material. POPLITEAL CYST: Moderate size popliteal/garcia cyst with ill-defined fluid extending inferiorly. TRICOMPARTMENT SPACES: [id number] tricompartment joint space loss without significant spurring. CARTILAGE: Some thinning of articular cartilage medial tibial femoral compartment. Some thinning of a rticular cartilage posterior patellar pole along superior aspect. No full-thickness cartilaginous los s. BONE MARROW SIGNAL: No focal abnormal marrow signal is appreciated. OTHER: No additional significant abnormality is appreciated. IMPRESSION: 1. Large suprapatellar joint effusion with suggestion of underlying synovitis. 2. Moderate-sized leaking popliteal cyst. 3. Oblique full-thickness tear posterior horn of medial meniscus. 4. Mild to moderate tricompartment degenerative changes as detailed above.
== END | disposition home or self-care (01) ==
LOC: RADMRIMAIN 13:03
PROVIDERS: ATTEND Orthopaedic Surgery
DX: M23.321 Other meniscus derangements, posterior horn of medial meniscus, right knee (principal); M71.21 Synovial cyst of popliteal space [Baker], right knee; M17.11 Unilateral primary osteoarthritis, right knee

== ENCOUNTER 2021-01-08 08:05 | Day surgery (SDC) | payer MEDICARE, OTHER ==
[2021-01-03 11:30] VITALS: BMI 37.8
--- NOTE | 2021-01-07 16:52 | HP ---
HISTORY AND PHYSICAL DATE OF SURGERY: 01/08/2021 Monica Woodward is a 60-year-old patient seen with progressive right knee pain. We discussed options for treatment. She elected to proceed with arthroscopy. Consent was obtained. PAST MEDICAL HISTORY: [id number] diabetes, hypertension, anxiety. PAST SURGICAL HISTORY: section, hysterectomy, left knee arthroscopy. DAILY MEDICATIONS: Clonidine, , lisinopril, metformin, tramadol, Lyrica. ALLERGIES: NONE REPORTED. SOCIAL HISTORY: She denies current tobacco use. PHYSICAL EVALUATION OF THE RIGHT KNEE: Range of motion is negative 2/3 to 115. Mild effusion. Tenderness, medial joint line. Positive medial America's. Ligaments stable. Hip rotation without pain. Distal neurovascular exam intact. RADIOGRAPHS: Right knee radiographs revealed mild to moderate osteoarthritic changes. MRI right knee revealed medial meniscal tear. IMPRESSION: 1. Internal derangement of right knee with medial meniscal tear. 2. Hypertension. 3. [id number] diabetes. PLAN: Right knee arthroscopy with partial meniscectomy and debridement. MMODL / IJN: [id number] /
[~2021-01-08 08:05] MED LIST changes: -LIDOCAINE 1% (10MG/ML) FOR IV START INTRADERMA PRN; -MIDAZOLAM 2 MG/2 ML VIAL IV PRN
[2021-01-08 08:42] LABS: Glucose,Whole Blood 115 mg/dL (75-99)
[2021-01-08] MEDS ORDERED: LIDOCAINE 1% (10MG/ML) FOR IV START INTRADERMA ONE (08:42)
[2021-01-08] MEDS ORDERED: fentaNYL (PF) 50 MCG/ML 2 ML AMP ONE (10:00)
[2021-01-08] MEDS ORDERED: MIDAZOLAM 2 MG/2 ML VIAL ONE (10:00)
[2021-01-08] MEDS ORDERED: KETOROLAC 15 MG/ML 1 ML VIAL ONE (10:00)
[2021-01-08] MEDS ORDERED: SUCCINYLCHOLINE CHLORIDE 100 MG/5 ML SYR IV ONE (10:00)
[2021-01-08] MEDS ORDERED: PROPOFOL 10 MG/ML 20 ML VIAL IV ONE (10:00)
[2021-01-08] MEDS ORDERED: LIDOCAINE 1% INJ 10MG/ML (20 ML MDV) ONE (10:00)
[2021-01-08] MEDS ORDERED: BUPIVACAINE (PF) 0.25% 30 ML VIAL SQ ONE ×2 (10:20→10:32)
--- NOTE | 2021-01-08 10:44 | P.OP ---
Date of Procedure: 01/08/21 Preoperative Diagnosis: Internal derangement right knee Postoperative Diagnosis: 1. Tear medial meniscus right knee 2. Grade 2 chondromalacia medial femoral condyle right knee 3. Grade 2 chondromalacia patella right knee 4. Reactive synovitis medial, lateral and suprapatellar compartments right knee Procedure(s) Performed: 1. Arthroscopic partial medial meniscectomy right knee 2. Arthroscopic chondroplasty medial femoral condyle right knee 3. Arthroscopic chondroplasty patella condyle right knee 4. Arthroscopic partial synovectomy medial, lateral and suprapatellar compartments right knee Anesthesia: MATTHIASA, local Surgeon: Sotero Buitrago Estimated Blood Loss (ml): 7 Pathology: none sent Condition: stable Disposition: PACU Indications for Procedure: 60-year-old patient seen with progressive right knee pain. After treatment options were discussed, she elected to proceed with arthroscopy. Operative Findings: See description of procedure Description of Procedure: Patient was taken to the operative suite. Patient underwent a general anesthetic by the department of anesthesia. Patient was given preoperative antibiotics. The right lower extremity was placed in a well-padded arthroscopic leg frank. The right leg was prepped and draped in the normal sterile orthopedic fashion. A lateral parapatellar and suprapatellar incision was made. Trochars were inserted. Arthroscopy was initiated. Suprapatellar pouch revealed diffuse thick reactive synovitis. The patellofemoral joint appeared to articulate congruently. There with grade 2 chondromalacia of the patella with some small osteochondral tears present. The scope was guided into the medial gutter. No loose bodies or plica were identified. The scope was then guided into the medial compartment. A medial parapatellar incision was made. Trocar inserted followed by probe. Was a radial tear posterior horn medial meniscus. There were grade 2 chondromalacia changes of the medial femoral condyle with some osteochondral flap tears present. There was thick reactive synovitis anteriorly. I performed a partial medial meniscectomy getting down to stable meniscal tissue. I performed a chondroplasty of the medial femoral condyle getting down to stable osteochondral tissue. I performed a partial synovectomy decompressing the reactive synovitis. The residual meniscus was stable. The residual osteochondral surface of the femoral condyle was stable. There was good decompression of the synovitis. Scope and probe were then guided into the intercondylar notch. Cruciates were identified, probed and found to be stable. The scope and probe were then guided into lateral compartment. Lateral meniscus was found to be stable. There was mild grade 1 chondromalacia with no tears. There was thick reactive synovitis anteriorly. I introduced a motorized shaver and performed a partial synovectomy decompressing the reactive synovitis. The shaver was removed. There was good decompression of the synovitis. The scope was in guided back into the suprapatellar compartment. I introduced a motorized shaver into the super patellar compartment. I debrided some piecemeal fragments of meniscus I encountered. I performed a chondroplasty of the patella gained down to stable osteochondral tissue. I performed a partial synovectomy decompressing the reactive synovitis. The shaver was removed. The residual osteochondral surface of the patella was stable. There was good decompression of the synovitis. I took one more look around the entire knee, no residual debris. Instruments were now removed from the joint. The joint was infiltrated with .25% Marcaine. Steri-Strips were applied to the portal sites. Sterile dressings were applied. The patient was placed into a DANIELA hose. No tourniquet was utilized. The patient was awakened, transferred to a bed and taken to recovery stable satisfactory condition.
[2021-01-08 10:54] VITALS: TEMP 98
[2021-01-08 10:59] LABS: Glucose,Whole Blood 135 mg/dL (75-99)
[2021-01-08] MEDS: HYDROmorphone 0.5 MG/0.5 ML SYRINGE IVP PRN ×2 (11:16→11:26)
[2021-01-08 12:35] VITALS: BP 125/70; PULSE 61; RESP 18
== END 2021-01-08 13:02 | disposition home or self-care (01) ==
LOC: OR 08:05
PROVIDERS: ATTEND Orthopaedic Surgery
DX: S83.241A Other tear of medial meniscus, current injury, right knee, initial encounter (principal); M65.861 Other synovitis and tenosynovitis, right lower leg; M22.41 Chondromalacia patellae, right knee; M23.91 Unspecified internal derangement of right knee; E11.9 Type 2 diabetes mellitus without complications; I10 Essential (primary) hypertension; I48.91 Unspecified atrial fibrillation; J45.909 Unspecified asthma, uncomplicated; Z79.84 Long term (current) use of oral hypoglycemic drugs; Z90.710 Acquired absence of both cervix and uterus; K21.9 Gastro-esophageal reflux disease without esophagitis; Z79.82 Long term (current) use of aspirin; Z79.899 Other long term (current) drug therapy
CPT/HCPCS: 29881; 29876; J2250; J1100; J0690; J2405; J2001; J3010; J1885; J0330; J2704; J1170